=== PATIENT | male | born 1965 | race Caucasian/White ===

== ENCOUNTER 2016-11-17 12:12 | Emergency (ER) | payer SELFPAY ==
[~2016-11-17] VITALS: Ht 188 cm; Wt 81.0 kg
[~2016-11-17 12:12] MED LIST: OXYC30TA3 PO; PRED20 PO; PROM25SU8 PO; XANA2TAB2 PO
[2016-11-17 12:24] VITALS: BP 98/57; PULSE 70; RESP 16; TEMP 97.9; O2SAT 98
[2016-11-17 12:43] VITALS: BP 106/67
[2016-11-17] MEDS ORDERED: ROBA750T PO (12:56)
[2016-11-17] MEDS ORDERED: IBUP-232 PO (12:56)
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
[2016-11-17] MEDS ORDERED: ORPHENADRINE INJ 60 MG/2 ML AMP IM ONE (13:00)
[2016-11-17] MEDS ORDERED: KETOROLAC TROMETHAMINE 60 MG/2 ML (IM) VIAL IM ONE (13:00)
[2016-11-17] MEDS ORDERED: DEXAMETHASONE SOD PHOS 4 MG/ML VIAL IM ONE (13:00)
== END 2016-11-17 13:53 | disposition home or self-care (01) ==
LOC: PHEFT 12:12
DX: S39.012A Strain of muscle, fascia and tendon of lower back, initial encounter (principal); F17.200 Nicotine dependence, unspecified, uncomplicated; W19.XXXA Unspecified fall, initial encounter
CPT/HCPCS: 96372; 99284; J1100; J1885; J2360

== ENCOUNTER 2017-10-15 00:05 | Inpatient (IN) ==
[2017-10-15] MEDS ORDERED: Tetanus/Diphtheria Toxoid Adult Vaccine Inj 0.5 ML Vial IM ONE (00:47)
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
[2017-10-15 01:39] LABS: Potassium 3.4 meq/L (3.5-5.1)
[2017-10-15 01:41] LABS: Calcium 8.4 mg/dL (8.5-10.1)
[2017-10-15 01:42] LABS: Carbon Dioxide 27.6 meq/L (21.0-32.0)
[2017-10-15] MEDS ORDERED: Morphine Inj 4 MG/ML Vial IV.PUSH ONE (01:44)
[2017-10-15] MEDS ORDERED: Sodium Chlor 0.9% Inj 500 ML IV.SIG ONE (01:44)
[2017-10-15 01:45] LABS: Activated Partial Thrombo Time 27.9 sec (24.3-30.1); INR 1.1 Ratio; Prothrombin Time 11.5 sec (9.8-11.6)
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
[2017-10-15 01:54] LABS: Baso # (Auto) 0.1 th/mm3 (0.0-0.2); Baso % (Auto) 0.8 % (0.0-2.0); Eos # (Auto) 0.1 th/mm3 (0.0-0.4); Eos % (Auto) 0.6 % (0.0-4.0); Hematocrit 37.5 % (39.0-51.0); Hemoglobin 12.5 gm/dL (13.0-17.0); Lymph # (Auto) 1.5 th/mm3 (1.0-4.8); Mean Corpuscular HGB Conc 33.4 % (32.0-36.0); Mean Corpuscular Volume 95.8 fL (80.0-100.0); Mean Platelet Volume 7.8 fL (7.0-11.0); Mono # (Auto) 0.4 th/mm3 (0.0-0.9); Mono % (Auto) 5.1 % (0.0-8.0); Neut # (Auto) 6.4 th/mm3 (1.8-7.7); Neut % (Auto) 75.5 % (16.0-70.0); Platelet Count 255 th/mm3 (150-450); Red Blood Count 3.92 mil/mm3 (4.50-5.90); White Blood Count 8.5 th/mm3 (4.0-11.0)
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
[2017-10-15] MEDS ORDERED: ceFAZolin 2 GM Premix Inj 2 GM/50 ML PIGGYBACK IV.SIG ONE (01:58)
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
[2017-10-15] MEDS ORDERED: Sod Chloride 0.9% Inj 1,000 ML IV.CONT SCH (02:30)
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
[2017-10-15] MEDS ORDERED: HYDROmorphone PF Inj 1 MG/ML Ampul IV.PUSH PRN (04:22)
[2017-10-15] MEDS: HYDROmorphone PF Inj 2 MG/ML Vial IV.PUSH PRN ×2 (07:16→15:01)
[2017-10-15] MEDS ORDERED: Potassium Chlor 20 mEq Premix 20 MEQ/100 ML PIGGYBACK IV.SIG ONE ×2 (07:55→08:00)
[2017-10-15] MEDS ORDERED: Docusate Sodium 100 MG Capsule PO SCH (09:00)
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
[2017-10-16] MEDS ORDERED: Chlorhexidine Gluconate 2% 1 Pack (2 Cloths) TOPICAL SCH (04:00)
[2017-10-16] MEDS ORDERED: Chlorhexidine Gluconate 2% 1 Pack (2 Cloths) TOPICAL PRN (04:00)
== END 2017-10-15 17:54 | disposition home or self-care (01) ==
LOC: PHED 00:05 → NEDA 04:30 → NEPGCP 06:54
PROVIDERS: ADMIT Surgery Trauma Surgery; ATTEND Surgery Trauma Surgery